=== PATIENT | female | born 1985 | race Caucasian/White ===

== ENCOUNTER 2022-03-29 21:09 | Day surgery (SDC) ==
[2022-03-29 21:43] VITALS: BMI 27.4
== END 2022-03-29 22:10 | disposition home or self-care (01) ==
LOC: CSHLD/OP 21:09
PROVIDERS: ATTEND Obstetrics & Gynecology
DX: O46.92 Antepartum hemorrhage, unspecified, second trimester (principal); O26.22 Pregnancy care for patient with recurrent pregnancy loss, second trimester; O09.522 Supervision of elderly multigravida, second trimester; Z3A.21 21 weeks gestation of pregnancy
CPT/HCPCS: 76815; 99282